=== PATIENT | male | born 1935 | race Caucasian/White ===

== ENCOUNTER 2017-09-23 08:14 | Day surgery (SDC) | payer MEDICARE ==
[~2017-09-23] VITALS: Ht 175.3 cm; Wt 91.6 kg
[~2017-09-23 08:14] MED LIST: ASPI-555 PO; BOTULINUM TOXIN TYPE A 100 UNITS/VIAL INJ PRN; CHOL100018 PO; FOLI0.4T2 PO; KRIL500C PO; METH10TA2 PO; PYRI100T2 PO; SAW450CA7 PO; SODIUM CHLORIDE 0.9% 1000ML 1,000 ML IV ONE
[2017-09-23 08:40] VITALS: BP 151/85
[2017-09-23] MEDS ORDERED: PROPOFOL 10 MG/ML 20ML VIAL IV ONE (10:12)
[2017-09-23 10:24] VITALS: BP 109/47
== END 2017-09-23 11:00 | disposition home or self-care (01) ==
LOC: DAH 08:14 → ENDO 08:14
PROVIDERS: ATTEND Internal Medicine Gastroenterology
DX: K29.50 Unspecified chronic gastritis without bleeding (principal); K22.0 Achalasia of cardia; K59.01 Slow transit constipation; Z98.890 Other specified postprocedural states; G89.29 Other chronic pain; N40.0 Benign prostatic hyperplasia without lower urinary tract symptoms; Z68.30 Body mass index [BMI] 30.0-30.9, adult; Z79.899 Other long term (current) drug therapy
CPT/HCPCS: 43236; 43239; 88305; 88312 ×2; A4606; J2704; J7030

== ENCOUNTER 2019-03-16 15:29 | Inpatient (IN) | payer MEDICARE ==
[~2019-03-16] VITALS: Ht 175.3 cm; Wt 94.9 kg
[~2019-03-16 15:29] MED LIST changes: +ASPI-1181 PO; -ASPI-555 PO; -BOTULINUM TOXIN TYPE A 100 UNITS/VIAL INJ PRN; -CHOL100018 PO; -KRIL500C PO; +OMEP40CA13 PO; -PYRI100T2 PO; -SAW450CA7 PO; -SODIUM CHLORIDE 0.9% 1000ML 1,000 ML IV ONE; +TAMS-1 PO
[2019-03-16 16:06] LABS: APPEARANCE,URINE Clear (CLEAR); BILIRUBIN,URINE Negative (NEGATIVE); COLOR,URINE Dark Yellow (YELLOW); GLUCOSE, URINE (UA) Negative (NEGATIVE); KETONES,URINE Trace mg/dL (NEGATIVE); LEUKOCYTE ESTERASE ,URINE Negative (NEGATIVE); NITRATE,URINE Negative (NEGATIVE); OCCULT BLOOD,URINE Negative (NEGATIVE); PROTEIN,URINE Negative (NEGATIVE)
[2019-03-16 16:25] LABS: BACTERIA,URINE None Seen /HPF (None Seen); MUCUS,URINE None Seen LPF (None Seen); RBC,URINE 0-1 /HPF (0-1); SQUAMOUS EPITHELIAL CELL,UR 0-2 /HPF (0-2); WBC,URINE 0-1 /HPF (0-1)
[2019-03-16 16:45] LABS: BASOPHILS % (AUTO) 0.3 % (0.0-5.0); HEMATOCRIT 38.6 % (42-54); LYMPHOCYTES % (AUTO) 7.6 % (21.0-51.0); MEAN CORPUSCULAR HEMOGLOBIN 31.6 pg (27.0-33.0); MEAN CORPUSCULAR HGB CONC 34.3 g/dL (32.0-36.0); MONOCYTES % (AUTO) 7.3 % (3.0-13.0); NEUTROPHILS % (AUTO) 84.8 % (40.0-77.0); PLATELET COUNT (AUTO) 84 K/uL (130-400); RED BLOOD CELL COUNT(AUTO) 4.19 MIL/uL (4.50-6.20); RED CELL DISTRIBUTION WIDTH 14.6 % (11.0-15.5); WHITE BLOOD COUNT (AUTO) 8.6 K/uL (4.8-10.8)
[2019-03-16 17:12] LABS: POTASSIUM 4.3 mmol/L (3.5-5.1)
[2019-03-16] MEDS ORDERED: HYDROCORTISONE/PRAMOXINE 10 GM FOAM RC SCH (17:45)
[2019-03-16] MEDS ORDERED: BISACODYL 10 MG SUPP.RECT RC ONE (17:50)
[2019-03-16] MEDS ORDERED: MORPHINE SULFATE 2 MG/ML 1ML SYG ONE (20:48)
[2019-03-16] MEDS: LACTATED RINGERS 1000ML 1,000 ML IV SCH (21:45)
[2019-03-16 22:45] VITALS: BP 140/69
--- NOTE | 2019-03-16 22:45 | NUR ---
ADMISSION NOTE: Pt. received via stretcher from ER. AOX4. Able to amb indep. Positioned in bed according to pt comfort.VS checked and recorded. Assessment done. ( see CPOE flow chart for full assessment). Oriented to room and use of call light. Policies and procedures explained. Verbalized understanding. Plan of care initiated. Home meds listed and resumed as ordered. Has FC attached to urobag draining a dark yellow urine. Kept monitored and watched out for any unusualities. Denies pain at this time. No apparent distress noted. Cared for and needs attended.
[2019-03-17] MEDS ORDERED: FOLI0.4T2 PO (01:49)
[2019-03-17] MEDS ORDERED: KRIL500C PO (01:49)
[2019-03-17] MEDS ORDERED: ZOLP10TA2 PO (01:49)
[2019-03-17] MEDS ORDERED: CHOL100046 PO (01:49)
[2019-03-17] MEDS ORDERED: POLY17PO4 PO (01:49)
[2019-03-17] MEDS ORDERED: SAW450CA7 PO (01:49)
[2019-03-17 03:39] VITALS: BP 115/58
[2019-03-17 05:43] LABS: HEMATOCRIT 36.3 % (42-54); MEAN CORPUSCULAR HEMOGLOBIN 31.8 pg (27.0-33.0); MEAN CORPUSCULAR HGB CONC 34.8 g/dL (32.0-36.0); MEAN CORPUSCULAR VOLUME 91.2 fL (79-99); PLATELET COUNT (AUTO) 88 K/uL (130-400); RED BLOOD CELL COUNT(AUTO) 3.98 MIL/uL (4.50-6.20); RED CELL DISTRIBUTION WIDTH 14.4 % (11.0-15.5); WHITE BLOOD COUNT (AUTO) 10.1 K/uL (4.8-10.8)
[2019-03-17 05:56] LABS: CREATININE 0.9 mg/dL (0.5-1.5); POTASSIUM 4.1 mmol/L (3.5-5.1)
[2019-03-17] MEDS ORDERED: METHADONE HCL 10 MG TABLET PO ONE (06:42)
[2019-03-17] MEDS: METHADONE HCL 10 MG TABLET PO SCH ×3 (06:49→22:51)
[2019-03-17 07:45] VITALS: BP 119/66
[2019-03-17] MEDS: FOLIC ACID 1 MG TABLET PO SCH (08:24)
[2019-03-17] MEDS: LACTULOSE 20 GM/30 ML UDCUP PO SCH ×3 (08:24→22:50)
[2019-03-17] MEDS: FISH OIL 1000 MG/CAP PO SCH (08:24)
[2019-03-17] MEDS: CHOLECALCIFEROL 3000 UNIT PO SCH (08:24)
[2019-03-17] MEDS: POLYETHYLENE GLYCOL 3350 17 GM POWD.PACK PO SCH (08:24)
[2019-03-17] MEDS ORDERED: HYDROCORTISONE 25 MG SUPPOSITORY PR SCH (08:45)
[2019-03-17] MEDS ORDERED: TAMSULOSIN HCL 0.4 MG CAP.ER.24H PO SCH (09:00)
[2019-03-17] MEDS: LACTATED RINGERS 1000ML 1,000 ML IV SCH (11:15)
[2019-03-17 11:21] VITALS: BP 129/69
[2019-03-17] MEDS ORDERED: TAMS-1 PO (11:48)
[2019-03-17] MEDS ORDERED: HYDR25SU38 RC (11:50)
[2019-03-17] MEDS ORDERED: HYDR30CR79 RC (11:50)
--- NOTE | 2019-03-17 13:46 | NUR ---
DC PLAN PER PATIENT, STATES INDEPENDENCE, LIVES WITH SPOUSE, NO PROVIDER, HAS ROLLING WALKER, AND FEELS SAFE TO RETURN HOME ONCE READY. Addendum: 03/17/19 at 1347 by CAMILO LUI RN CM Amended: Links added.
--- NOTE | 2019-03-17 14:00 | NUR ---
AHMADI CATHETER D/C PER [facility] ORDERS PATIENT PENDING TO VOID.
[2019-03-17] MEDS ORDERED: HYDROCORTISONE 25 MG SUPPOSITORY PR PRN (15:30)
[2019-03-17 16:00] VITALS: BP 112/63
--- NOTE | 2019-03-17 17:00 | NUR ---
PATIENT STILL PENDING TO VOID. NO COMPLAIN OF SUPRAPUBIC PAIN. BLADDER SCAN DONE, 294 ML. WAITING ON BRYON FROM [facility] TO CALL BACK.
--- NOTE | 2019-03-17 17:28 | NUR ---
BRYON FROM [facility] CALLED BACK. ORDERED TO HOLD D/C IF PATIENT DOES NOT VOID. CHARGE NURSE AWARE.
[2019-03-17] MEDS ORDERED: ACETAMINOPHEN EXTENDED RELEASE 650 MG TABLET PO PRN (17:30)
[2019-03-17] MEDS ORDERED: ACETAMINOPHEN 325 MG TAB ONE (17:34)
[2019-03-17] MEDS ORDERED: ACETAMINOPHEN 325 MG TAB PO PRN (18:00)
[2019-03-17] MEDS ORDERED: HYDROMORPHONE HCL 0.5 MG/0.5 ML ML IVP PRN (18:30)
--- NOTE | 2019-03-17 19:20 | NUR ---
PATIENT HAD SEVERAL SEVERAL BOWEL MOVEMENTS TODAY. STILL COMPLAINS OF RECTAL PAIN. DILAUDID 0.4 ADMINISTERED PER EMAR ORDERS.
[2019-03-17] MEDS: TAMSULOSIN HCL 0.4 MG CAP.ER.24H PO SCH (19:54)
[2019-03-17 20:00] VITALS: BP 122/58
[2019-03-17] MEDS: SAW PALMETTO FRUIT PO SCH (21:00)
[2019-03-17] MEDS: ZOLPIDEM TARTRATE 5 MG TAB PO SCH (21:51)
[2019-03-18] VITALS: BP 127/49
--- NOTE | 2019-03-18 03:00 | NUR ---
status update post rapid response on another pt , on rounds , noted pt with small amount blood noted around urinary meatus and on tubing ,bloody urine noted as well, cordova cath intact ,balloon still with 10cc ns ,irrigated with sterile ns , flowing well without problems , pt . reoriented and reassured, denies acute pain or discomfort at this time , p.pt's at bedside stated pt never had any episodes of confusion at home. Addendum: 03/18/19 at 0333 by POPPY RETANA RN RN Amended: Links added.
[2019-03-18 04:00] VITALS: BP 129/56
[2019-03-18 07:00] VITALS: BP 120/62
[2019-03-18] MEDS: FOLIC ACID 1 MG TABLET PO SCH (08:25)
[2019-03-18] MEDS: FISH OIL 1000 MG/CAP PO SCH (08:25)
[2019-03-18] MEDS: METHADONE HCL 10 MG TABLET PO SCH ×3 (08:25→20:19)
[2019-03-18] MEDS: LACTULOSE 20 GM/30 ML UDCUP PO SCH ×3 (08:31→20:20)
[2019-03-18] MEDS: POLYETHYLENE GLYCOL 3350 17 GM POWD.PACK PO SCH (08:31)
[2019-03-18] MEDS: CHOLECALCIFEROL 3000 UNIT PO SCH (08:33)
[2019-03-18 11:00] VITALS: BP 125/63
[2019-03-18 16:00] VITALS: BP 122/69
--- NOTE | 2019-03-18 16:57 | NUR ---
UPON STARTING TO DISCHARGE PT.CHECKED WITH PCP TO GET URINE OUTPUT AND AM TOLD SHE HAS NOT YET EMPTIED DRAINAGE BAG, BAG IS EMPTY. ATTEMPTED TO IRRIGATE, NO RESISTANCE PUSHING IN NS JUST A LITTLE DISCOMFORT BU NO RETURN, ATTEMPTED AGAIN AND SAME THING HAPPENED, PAGED JOSE AND WILL HOLD DC UNTIL I HEAR FROM HER. BLADDER SCAN DONE AND SHOWS [phone] ML.
--- NOTE | 2019-03-18 18:24 | NUR ---
DR. CASTILLO RETURNED CALL, GAVE INST TO DEFLATE BALLOON AND TO PUSH IN AHMADI. WILL CALL BACK TO SEE IF URINE OUTPUTIMPROVED.
[2019-03-18 19:00] VITALS: BP 134/64
--- NOTE | 2019-03-18 19:01 | NUR ---
DR. SRINIVASANINSTR. CARRIED OUT. FC BALLOON DEFLATED AND CATH PUSHED IN AND BLOODY URINE DRAINING NOW, APPROX. 400ML DRAINED AND PT. PULLED ON CATH AND IT DISLODGED, HOWEVER NOTED URINE DRAINING. DR. SMITH CALLED BACK AND JUST GAVE INST FOR PT TO FU WITH HER ON A PRN BASIS. PT. NOW STATES HE IS COMFORTABLE NOW.DECLINED TO HAVE FC REINSERTED.
--- NOTE | 2019-03-18 19:15 | NUR ---
PM Assessment Received pt with no family around, noted comfortably lying in bed, routine assessment done, plan of care discuss, made aware possible d/c tomorrow as long as he won't have issue regarding urinary retention. Pt reminded to please use the urinal to be able to monitor closely his urine output which was reported bloody as pt did pull his Sousa catheter earlier, agreed, urinal provided close at hand.
[2019-03-18] MEDS: ZOLPIDEM TARTRATE 5 MG TAB PO SCH (20:13)
[2019-03-18] MEDS: TAMSULOSIN HCL 0.4 MG CAP.ER.24H PO SCH (20:13)
[2019-03-18] MEDS: SAW PALMETTO FRUIT PO SCH (20:20)
--- NOTE | 2019-03-18 20:25 | NUR ---
Re: Lactulose Pt declined Lactulose scheduled dose claimed has been having good BM, reported today x 2. Also since medicated with scheduled Ambien, pt made aware bed alarm will be activated, door keep ajjessica.
[2019-03-19] VITALS: BP 111/58
[2019-03-19 04:00] VITALS: BP_SYST 122; BP_SYST 137; BP_DIAS 64; BP_DIAS 73
[2019-03-19 07:00] VITALS: BP 111/58
--- NOTE | 2019-03-19 08:00 | NUR ---
SHIFT ASSESSMENT. DISCHARGE ORDERS ALREADY IN PLACE.
[2019-03-19] MEDS: CHOLECALCIFEROL 3000 UNIT PO SCH (09:00)
[2019-03-19] MEDS: LACTULOSE 20 GM/30 ML UDCUP PO SCH (09:00)
[2019-03-19] MEDS: METHADONE HCL 10 MG TABLET PO SCH (09:22)
[2019-03-19] MEDS: FOLIC ACID 1 MG TABLET PO SCH (09:22)
[2019-03-19] MEDS: POLYETHYLENE GLYCOL 3350 17 GM POWD.PACK PO SCH (09:22)
[2019-03-19] MEDS: FISH OIL 1000 MG/CAP PO SCH (09:22)
--- NOTE | 2019-03-19 10:45 | NUR ---
DISCHARGED NOW USING TEACH BACK. BOTH HE AND SPOUSE VERBALIZE UNDERSTANDING OF ALL INST. GIVEN. KNOWS HIS MEDICATIONS WELL. WILL FOLLOW UP WITH DR. SPAIN ON THURSDAY AND HAS BEEN GIVEN DR. SMITH OFFICE # TO CALL, NO APPT. PER DR. SMITH DOES NOT NEED AN APPT. WITH HER. CAN SEE HER ON NEEDED BASIS. HAS BEEN VOIDING WITH OUT ANY DIFFICULTYLAST NIGHT AND THIS AM. URINE CLEAR AND HAS NO DISCOMFORT.
== END 2019-03-19 11:00 | disposition home or self-care (01) | DRG 392 ==
LOC: EDH 15:29 → OBSVTOIN 21:10 → EDHIP 21:10 → 3BH 22:27
PROVIDERS: ADMIT Internal Medicine Critical Care Medicine; ATTEND Internal Medicine Critical Care Medicine
DX: K59.00 Constipation, unspecified (principal); D69.6 Thrombocytopenia, unspecified; G47.00 Insomnia, unspecified; G62.9 Polyneuropathy, unspecified; I25.10 Atherosclerotic heart disease of native coronary artery without angina pectoris; R82.4 Acetonuria; M47.816 Spondylosis without myelopathy or radiculopathy, lumbar region; N40.1 Benign prostatic hyperplasia with lower urinary tract symptoms; R33.8 Other retention of urine; Z79.899 Other long term (current) drug therapy; Z82.3 Family history of stroke; Z87.891 Personal history of nicotine dependence; Z96.642 Presence of left artificial hip joint; Z82.49 Family history of ischemic heart disease and other diseases of the circulatory system
CPT/HCPCS: 36415; 74018; 80048; 81001; 83605; 85025; 85027; G0378; J1170; J7120

== ENCOUNTER → 2020-01-31 | Outpatient (CLI) | payer MEDICARE ==
[~2020-01-31] MED LIST changes: -ASPI-1181 PO; +CHOL100046 PO; +DOCU-275 PO; +HYDR25SU38 RC; +HYDR30CR79 RC; +KRIL500C PO; +LACT PO; -OMEP40CA13 PO; +POLY17PO4 PO; +SAW450CA7 PO; +ZOLP10TA2 PO
== END | disposition home or self-care (01) ==
LOC: WHH 09:45
PROVIDERS: ATTEND Family Medicine
DX: L02.31 Cutaneous abscess of buttock (principal); E11.22 Type 2 diabetes mellitus with diabetic chronic kidney disease; I12.0 Hypertensive chronic kidney disease with stage 5 chronic kidney disease or end stage renal disease; N18.6 End stage renal disease; E11.52 Type 2 diabetes mellitus with diabetic peripheral angiopathy with gangrene; I96 Gangrene, not elsewhere classified; E11.42 Type 2 diabetes mellitus with diabetic polyneuropathy; I25.10 Atherosclerotic heart disease of native coronary artery without angina pectoris; Z79.01 Long term (current) use of anticoagulants; Z79.82 Long term (current) use of aspirin; Z79.4 Long term (current) use of insulin; Z87.891 Personal history of nicotine dependence; Z95.1 Presence of aortocoronary bypass graft; Z90.49 Acquired absence of other specified parts of digestive tract; Z89.511 Acquired absence of right leg below knee; Z98.49 Cataract extraction status, unspecified eye; Z96.649 Presence of unspecified artificial hip joint
CPT/HCPCS: G0463

== ENCOUNTER 2020-07-16 11:48 | Observation (INO) | payer MEDICARE ==
[~2020-07-16] VITALS: Ht 175.3 cm; Wt 88.9 kg
[~2020-07-16 11:48] MED LIST changes: -FOLI0.4T2 PO; +FOLI1 PO; -HYDR30CR79 RC; +L.AC1CAP6 PO; -LACT PO
[2020-07-16] MEDS ORDERED: MAGNESIUM CITRATE 296 ML SOLUTION ONE ×2 (12:10→16:50)
[2020-07-16] MEDS ORDERED: LACTULOSE 20 GM/30 ML UDCUP ONE (12:10)
[2020-07-16] MEDS ORDERED: GLYCERIN ADULT SUPP.RECT RC PRN (13:15)
[2020-07-16] MEDS ORDERED: ONDANSETRON ODT 4 MG TAB ONE (14:16)
[2020-07-16] MEDS ORDERED: MAGNESIUM HYDROXIDE 30 ML/UDCUP ONE (16:50)
[2020-07-16 18:59] LABS: APPEARANCE,URINE CLOUDY (CLEAR); BILIRUBIN,URINE NEGATIVE (NEGATIVE); COLOR,URINE YELLOW (YELLOW); GLUCOSE, URINE (UA) NEGATIVE (NEGATIVE); KETONES,URINE 15 mg/dL (NEGATIVE); LEUKOCYTE ESTERASE ,URINE LARGE (NEGATIVE); NITRATE,URINE NEGATIVE (NEGATIVE); OCCULT BLOOD,URINE MODERATE (NEGATIVE); PROTEIN,URINE 30 mg/dL (NEGATIVE); UROBILINOGEN,URINE 0.2 mg/dL (0.2-1.0)
[2020-07-16 19:00] LABS: BASOPHILS % (AUTO) 0.3 % (0.0-5.0); EOSINOPHILS % (AUTO) 1.5 % (0.0-8.0); HEMATOCRIT 36.9 % (42-54); LYMPHOCYTES % (AUTO) 13.5 % (21.0-51.0); MEAN CORPUSCULAR HEMOGLOBIN 31.2 pg (27.0-33.0); MEAN CORPUSCULAR HGB CONC 32.5 g/dL (32.0-36.0); MEAN CORPUSCULAR VOLUME 95.8 fL (79-99); MONOCYTES % (AUTO) 6.8 % (3.0-13.0); NEUTROPHILS % (AUTO) 77.6 % (40.0-77.0); PLATELET COUNT (AUTO) 92 K/uL (130-400); RED BLOOD CELL COUNT(AUTO) 3.85 MIL/uL (4.50-6.20); RED CELL DISTRIBUTION WIDTH 13.8 % (11.0-15.5); WHITE BLOOD COUNT (AUTO) 6.1 K/uL (4.8-10.8)
[2020-07-16 19:11] LABS: BACTERIA,URINE Few /HPF (None Seen); WBC,URINE 51-100 /HPF (0-1)
[2020-07-16 19:12] LABS: SQUAMOUS EPITHELIAL CELL,UR Rare /HPF (0-2)
[2020-07-16 19:22] LABS: ALBUMIN 3.4 g/dL (3.5-5.0); POTASSIUM 5.2 mmol/L (3.5-5.1); TOTAL PROTEIN, SERUM 7.6 g/dL (6.0-8.3)
[2020-07-16] MEDS ORDERED: LACTULOSE 20 GM/30 ML UDCUP PO PRN (19:30)
[2020-07-16] MEDS ORDERED: ONDANSETRON HCL 4 MG/2 ML VIAL IV PRN (19:30)
[2020-07-16] MEDS ORDERED: ACETAMINOPHEN 325 MG TAB PO PRN ×2 (19:30)
[2020-07-16] MEDS ORDERED: GUAIFENESIN-DM 200/20 MG 10 ML PO PRN (19:30)
[2020-07-16] MEDS ORDERED: ZOLPIDEM TARTRATE 5 MG TAB PO PRN (19:30)
[2020-07-16] MEDS ORDERED: CEFTRIAXONE SODIUM 1 GM ONE (19:51)
[2020-07-16 22:11] VITALS: BP 135/86
[2020-07-16] MEDS ORDERED: METH10TA2 PO (23:28)
[2020-07-16] MEDS ORDERED: MIRT-72 PO (23:28)
[2020-07-17] VITALS (7 sets, daily range): BP systolic 111–136; BP diastolic 41–61
[2020-07-17] MEDS: ENOXAPARIN SODIUM 30 MG/0.3 ML SQ SCH (07:27)
[2020-07-17] MEDS: PNEUMOCOCCAL VACCINE POLYVALENT 0.5 ML/VIAL [PPV] SQ SCH (09:07)
[2020-07-17] MEDS ORDERED: MAGNESIUM CITRATE 296 ML SOLUTION PO ONE (10:45)
[2020-07-17] MEDS: CEFTRIAXONE SODIUM 1 GM IVP SCH (13:17)
[2020-07-17] MEDS ORDERED: MAGNESIUM CITRATE 296 ML SOLUTION ONE (15:31)
[2020-07-17] MEDS: DEXTROSE 5 %-0.45 % NACL 1,000 ML IV SCH (15:35)
[2020-07-17] MEDS: METHADONE HCL 10 MG TABLET PO SCH ×2 (15:38→20:53)
[2020-07-17] MEDS ORDERED: SAW PALMETTO FRUIT PO SCH (21:00)
[2020-07-17] MEDS ORDERED: MIRTAZAPINE 15 MG PO SCH (21:00)
[2020-07-17] MEDS ORDERED: SAW PALMETTO PO SCH (21:00)
[2020-07-17] MEDS ORDERED: MIRTAZAPINE 15 MG TABLET PO SCH (21:00)
[2020-07-17] MEDS ORDERED: ALBUTEROL SULFATE 0.083% 2.5 MG/3 ML INH IH PRN (22:15)
[2020-07-18 03:40] VITALS: BP 134/48
[2020-07-18] MEDS: DEXTROSE 5 %-0.45 % NACL 1,000 ML IV SCH ×2 (04:48→10:10)
[2020-07-18 05:44] LABS: MEAN CORPUSCULAR HGB CONC 31.3 g/dL (32.0-36.0); MEAN CORPUSCULAR VOLUME 99.1 fL (79-99); RED BLOOD CELL COUNT(AUTO) 3.23 MIL/uL (4.50-6.20); WHITE BLOOD COUNT (AUTO) 6.3 K/uL (4.8-10.8)
[2020-07-18 05:56] LABS: CREATININE 0.9 mg/dL (0.5-1.5); POTASSIUM 4.3 mmol/L (3.5-5.1)
[2020-07-18 08:47] VITALS: BP 104/53
[2020-07-18] MEDS ORDERED: TAMSULOSIN HCL 0.4 MG CAP.ER.24H PO SCH (09:00)
[2020-07-18] MEDS ORDERED: CHOLECALCIFEROL 3000 UNIT PO SCH ×2 (09:00)
[2020-07-18] MEDS ORDERED: FOLIC ACID 1 MG TABLET PO SCH (09:00)
[2020-07-18] MEDS ORDERED: NON-FORMULARY MEDICATION 1 EACH (Krill Oil 500 MG) PO SCH (09:00)
[2020-07-18] MEDS ORDERED: POLYETHYLENE GLYCOL 3350 17 GM POWD.PACK PO SCH (09:00)
[2020-07-18] MEDS: CEFTRIAXONE SODIUM 1 GM IVP SCH (10:05)
[2020-07-18] MEDS: METHADONE HCL 10 MG TABLET PO SCH ×2 (10:06→15:02)
[2020-07-18] MEDS: ENOXAPARIN SODIUM 30 MG/0.3 ML SQ SCH (10:07)
[2020-07-18] MEDS: PNEUMOCOCCAL VACCINE POLYVALENT 0.5 ML/VIAL [PPV] SQ SCH (10:13)
[2020-07-18 10:45] VITALS: BP 115/53
[2020-07-18 17:07] VITALS: BP 115/51
== END 2020-07-18 20:45 | disposition short-term general hospital (02) ==
LOC: EDH 11:48 → EDHIP 19:15 → 3CH 21:23
PROVIDERS: ADMIT Internal Medicine Pulmonary Disease; ATTEND Internal Medicine Pulmonary Disease
DX: K56.41 Fecal impaction (principal); Z20.822 Contact with and (suspected) exposure to COVID-19; N30.00 Acute cystitis without hematuria; G89.29 Other chronic pain; M54.9 Dorsalgia, unspecified; N40.0 Benign prostatic hyperplasia without lower urinary tract symptoms; F41.8 Other specified anxiety disorders; Z23 Encounter for immunization; Z87.891 Personal history of nicotine dependence; Z90.49 Acquired absence of other specified parts of digestive tract; Z79.891 Long term (current) use of opiate analgesic; Z79.899 Other long term (current) drug therapy
CPT/HCPCS: 36415 ×3; 71045; 74018; 80048; 80053; 81001; 85025; 85027; 87040 ×2; 87077; 87088; 87186; 87426; 90732 ×2; 94664; 96361 ×2; 96372; 96374; 96375; 96376; 97039 ×2; 97161; 99291; A4510; G0009 ×2; G0378 ×49; G8978; G8979; G8980; G8981; G8982; G8983; J0696 ×3; J1650; J2405; J7042 ×3